=== PATIENT | male | born 1950 | race Caucasian/White ===

== ENCOUNTER 2022-02-02 06:23 | Inpatient (IN) ==
[~2022-02-02 06:23] MED LIST: Acetaminophen IV 1,000 MG/100 ML BAG IVPB ONE; Famotidine 20 MG/2 ML VIAL IVP ONE; Ringers Solution, Lactated 1,000 ML IVC ONE
[2022-02-02] MEDS ORDERED: Vancomycin 1,250 MG/262.5 ML IV.SOLN IVPB ONE (06:53)
[2022-02-02] MEDS ORDERED: CeFAZolin Syr 2,000MG/20 ML 2,000 MG/20 ML SYRINGE IVPB ONE (06:53)
[2022-02-02] MEDS ORDERED: Bupivacaine-MPF 0.25% 10 ML VIAL ONE ×2 (07:16→08:05)
[2022-02-02] MEDS ORDERED: Heparin 1,000 UNITS/500 mL 500 ML ONE (07:16)
[2022-02-02] MEDS ORDERED: Protamine Sulfate 50 MG/5 ML VIAL IVP ONE (07:16)
[2022-02-02] MEDS ORDERED: Vancomycin 1,000 MG VIAL ONE (07:17)
[2022-02-02] MEDS ORDERED: *HR* Propofol 200 MG/20 ML VIAL IVP ONE (07:19)
[2022-02-02] MEDS ORDERED: *HR* FentaNYL (PF) 100 MCG/2 ML VIAL ONE (07:19)
[2022-02-02] MEDS ORDERED: *HR* Rocuronium Bromide 50 MG/5 ML VIAL ONE ×2 (07:23→09:37)
[2022-02-02] MEDS ORDERED: *HR* Succinylcholine 200 MG/10 ML VIAL IVP ONE (07:23)
[2022-02-02] MEDS ORDERED: Lidocaine -MPF 2% 5 ML VIAL ONE (07:23)
[2022-02-02] MEDS ORDERED: Heparin 1,000 UNITS/500 mL 0 ML ONE (07:25)
[2022-02-02] MEDS ORDERED: niCARdipine 40 MG/200 ML MLS IVC ONE (07:26)
[2022-02-02] MEDS ORDERED: NiCARdipine 2.5 MG/10 ML Syringe IVPB ONE (07:27)
[2022-02-02] MEDS ORDERED: *HR* Midazolam HCl 2 MG/2 ML VIAL ONE (08:17)
[2022-02-02] MEDS ORDERED: *HR* HYDROmorphone (PF) 1 MG/ML SYRINGE IVP PRN (08:29)
[2022-02-02] MEDS ORDERED: Nitroglycerin 0.4 MG TAB.SUBL SL PRN (08:29)
[2022-02-02] MEDS ORDERED: *HR* FentaNYL (PF) 100 MCG/2 ML VIAL IVP PRN (08:29)
[2022-02-02] MEDS ORDERED: Naloxone 0.4 MG/ML INJ IVP PRN ×2 (08:29→14:10)
[2022-02-02] MEDS ORDERED: Ondansetron 4 MG/2 ML VIAL IVP PRN ×2 (08:29→14:10)
[2022-02-02] MEDS ORDERED: *HR* Metoprolol 5 MG/5 ML VIAL IVP PRN (08:29)
[2022-02-02] MEDS ORDERED: Albuterol 2.5 MG/3 ML NEBULIZER IH PRN (08:29)
[2022-02-02] MEDS ORDERED: Ondansetron 4 MG/2 ML VIAL ONE (09:01)
[2022-02-02] MEDS ORDERED: *HR* HYDROMORPHONE 2 MG/ML VIAL ONE (10:24)
[2022-02-02] MEDS ORDERED: *HR* Heparin 5,000 UNIT/ML VIAL ONE (11:35)
[2022-02-02] MEDS ORDERED: Sugammadex Sodium 200 MG/2 ML VIAL IV ONE (12:34)
[2022-02-02] MEDS ORDERED: Vancomycin 1,000 MG, Sodium Chloride IRRigation 1,000 ML IR ONE (13:30)
[2022-02-02] MEDS ORDERED: *HR* HYDROcodone/Acet 5/325 mg TABLET PO PRN (14:10)
[2022-02-02] MEDS ORDERED: 0.9 % Sodium Chloride 1,000 ML IVC SCH (14:10)
[2022-02-02] MEDS ORDERED: *HR* Labetalol 20 MG/4 ML SYRINGE IVP PRN (14:10)
[2022-02-02] MEDS ORDERED: *HR* OxyCODONE Immed Rel 5 MG TABLET PO PRN (14:10)
[2022-02-02] MEDS ORDERED: traZODone 50 MG TABLET PO PRN (14:10)
[2022-02-02] MEDS ORDERED: Acetaminophen 325 MG TABLET PO PRN (14:10)
[2022-02-02] MEDS ORDERED: Protamine Sulfate 250 MG/25 ML VIAL IVP ONE (17:57)
[2022-02-02] MEDS: *HR* Metoprolol 5 MG/5 ML VIAL IVP SCH ×2 (18:50→22:58)
[2022-02-03 02:35] LABS: Basophils % 0.2 %; Hematocrit 29.3 % (37.5-50.1); Hemoglobin 9.5 g/dL (12.9-16.9); Immature Granulocytes % 0.7 % (0-4); Lymphocytes # 1.8 K/mcL (0.6-4.6); Lymphocytes % 10.2 %; Mean Corpuscular HGB Conc 32.4 g/dL (31.6-35.5); Mean Corpuscular Hemoglobin 29.8 pg (28.0-33.3); Mean Corpuscular Volume 91.8 fL (83.0-100.0); Mean Platelet Volume 9.9 fL (9.4-12.4); Monocytes # 1.4 K/mcL (0.0-1.3); Monocytes % 7.9 %; Neutrophils # 14.6 K/mcL (1.6-8.9); Platelet Count 300 K/mcL (140-400); Red Blood Count 3.19 M/mcL (4.19-5.50); Red Cell Distribution Width 15.9 % (11.5-14.5)
[2022-02-03 02:49] LABS: BUN/Creatinine Ratio 15 (6-26); Blood Urea Nitrogen 16 mg/dL (8-23); Carbon Dioxide 26 mEq/L (23-29); Chloride 100 mEq/L (98-107); Glucose 184 mg/dL (70-105); Osmolality,Calculated 284 (280-300); Potassium 4.8 mEq/L (3.5-5.1); Sodium 134 mEq/L (136-145); eGFR For African Americans > 60 (> 60); eGFR For Non-African Americans > 60 (> 60)
[2022-02-03] MEDS: *HR* Metoprolol 5 MG/5 ML VIAL IVP SCH ×2 (05:30→12:23)
[2022-02-03] MEDS ORDERED: *HR* Heparin 5,000 UNIT/ML VIAL SQ SCH ×2 (06:00)
[2022-02-03] MEDS ORDERED: allopurinoL 300 MG TABLET PO SCH (09:00)
[2022-02-03] MEDS ORDERED: Metoprolol XL (24 HR) Succ 25 MG TAB.ER.24H PO SCH (09:00)
[2022-02-03] MEDS ORDERED: Gabapentin 300 MG CAPSULE PO SCH (09:00)
[2022-02-03] MEDS ORDERED: Aspirin Enteric Coated 81 MG Tablet PO SCH (09:00)
[2022-02-03 11:04] VITALS: BP 109/55; PULSE 79; TEMP 98; O2SAT 99
== END 2022-02-03 14:10 | DRG 253 ==
LOC: SAMDAY 06:23 → 2NNU 14:03
PROVIDERS: ADMIT Surgery; ATTEND Surgery